=== PATIENT | male | born 1960 | race Caucasian/White ===

== ENCOUNTER 2020-06-20 14:50 | Inpatient (IN) | payer BC, OTHER ==
[~2020-06-20] VITALS: Ht 182.9 cm; Wt 81.8 kg
[2020-06-20] MEDS ORDERED: normal saline 1000ML IV soln IV ONE (15:25)
[2020-06-20] MEDS ORDERED: piperacillin/tazo 3.375gm/50ml 50 ML IV ONE (15:35)
[2020-06-20] MEDS ORDERED: vancomycin/NS 1 GM ADD-VANTAGE 250 ML IV ONE (15:35)
--- NOTE | 2020-06-20 15:46 | NUR ---
PT TAKEN TO MAIN ER, 1ST LITER NS INFUSING
[2020-06-20 16:01] LABS: BASOPHILS # (AUTO) 0.1 X10'3 (0-0.2); BASOPHILS % (AUTO) 0.8 % (0-1); EOSINOPHILS # (AUTO) 0.2 X10'3 (0-0.9); EOSINOPHILS % (AUTO) 1.3 % (0-6); HEMATOCRIT 39.5 % (42.0-52.0); HEMOGLOBIN 13.1 g/dl (14.0-17.9); LYMPHOCYTES # (AUTO) 1.5 X10'3 (1.1-4.8); LYMPHOCYTES % (AUTO) 8.6 % (21-51); MEAN CORPUSCULAR HEMOGLOBIN 29.9 PG (27.0-31.0); MEAN CORPUSCULAR HGB CONC 33.2 g/dL (33.0-36.5); MEAN CORPUSCULAR VOLUME 90.2 FL (78-98); MEAN PLATELET VOLUME 7.4 FL (7.4-10.4); MONOCYTES # (AUTO) 1.7 X10'3 (0-0.9); MONOCYTES % (AUTO) 9.7 % (2-12); NEUTROPHILS # (AUTO) 13.9 X10'3 (1.8-7.7); NEUTROPHILS % (AUTO) 79.6 % (42-75); PLATELET COUNT 447 X10'3 (140-440); RED BLOOD COUNT 4.38 X10'6 (4.70-6.10); RED CELL DISTRIBUTION WIDTH 14.2 % (11.5-14.5); WHITE BLOOD COUNT 17.5 X10'3 (4.5-11.0)
[2020-06-20 16:11] LABS: ALANINE AMINOTRANSFERASE 31 U/L (12-78); ALBUMIN 3.5 G/DL (3.4-5.0); ALBUMIN/GLOBULIN RATIO 0.8 (1.1-1.5); ALKALINE PHOSPHATASE 90 IU/L (46-116); ANION GAP 10 (8-16); ASPARTATE AMINO TRANSFERASE 21 U/L (10-37); BILIRUBIN,TOTAL 0.5 MG/DL (0.1-1.0); BLOOD UREA NITROGEN 12 MG/DL (7-18); BUN/CREATININE RATIO 11.5 (5.4-32.0); CHLORIDE 104 MMOL/L (99-107); CREATININE 1.04 MG/DL (0.60-1.10); GLUCOSE 98 MG/DL (70-104); SODIUM 138 MMOL/L (135-145); TOTAL CARBON DIOXIDE 23.9 MMOL/L (24-32); TOTAL PROTEIN 7.9 G/DL (6.4-8.2); eGFR 73 ML/MIN
[2020-06-20] MEDS ORDERED: iohexol 300mg/ml 100ml inj. ONE (16:17)
[2020-06-20] MEDS ORDERED: magnesium 2GM in 50ml NS 50 ML IV PRN (17:35)
[2020-06-20] MEDS ORDERED: potassium Cl 20 mEq SR tablet PO PRN ×2 (17:35)
[2020-06-20] MEDS ORDERED: magnesium 4gm in 100ml NS 100 ML IV PRN (17:35)
[2020-06-20] MEDS ORDERED: magnesium Cl slow-release 64mg tablet PO PRN (17:35)
[2020-06-20] MEDS ORDERED: potassium CL 10mEq/100ml bag 100 ML IV PRN ×2 (17:35)
[2020-06-20] MEDS ORDERED: AMLO2.5T2 PO (18:04)
[2020-06-20] MEDS: normal saline 1000ml 1,000 ML IV SCH (18:18)
[2020-06-20 19:20] VITALS: BP 150/81
[2020-06-20] MEDS: HYDROcodone/acetaminophen 5mg/325mg tablet PO PRN ×2 (19:55→23:37)
[2020-06-20] MEDS ORDERED: vancomycin/NS 1 GM ADD-VANTAGE 250 ML IV SCH (20:00)
[2020-06-20] MEDS: K and/or MAG REPLACEMENT MC SCH (20:00)
[2020-06-20] MEDS: docusate sod 100mg capsule PO SCH (20:00)
[2020-06-20 22:00] VITALS: BP 155/85
[2020-06-20] MEDS: morphine 2 MG/ML inj. syringe IV PRN (22:44)
[2020-06-21] MEDS: HYDROcodone/acetaminophen 5mg/325mg tablet PO PRN ×3 (03:42→21:19)
[2020-06-21] MEDS: morphine 2 MG/ML inj. syringe IV PRN ×2 (04:39→11:36)
[2020-06-21] MEDS ORDERED: VANCOmycin 1250MG/NS 250ml Bag 250 ML IV SCH (05:00)
[2020-06-21 06:00] VITALS: BP 141/84
[2020-06-21 06:54] LABS: BASOPHILS # (AUTO) 0.1 X10'3 (0-0.2); BASOPHILS % (AUTO) 0.7 % (0-1); EOSINOPHILS # (AUTO) 0.5 X10'3 (0-0.9); EOSINOPHILS % (AUTO) 2.9 % (0-6); HEMATOCRIT 38.9 % (42.0-52.0); HEMOGLOBIN 12.8 g/dl (14.0-17.9); LYMPHOCYTES # (AUTO) 1.8 X10'3 (1.1-4.8); LYMPHOCYTES % (AUTO) 11.3 % (21-51); MEAN CORPUSCULAR HEMOGLOBIN 29.7 PG (27.0-31.0); MEAN CORPUSCULAR VOLUME 89.9 FL (78-98); MEAN PLATELET VOLUME 7.3 FL (7.4-10.4); MONOCYTES # (AUTO) 1.9 X10'3 (0-0.9); MONOCYTES % (AUTO) 11.8 % (2-12); NEUTROPHILS # (AUTO) 11.6 X10'3 (1.8-7.7); NEUTROPHILS % (AUTO) 73.3 % (42-75); PLATELET COUNT 417 X10'3 (140-440); RED BLOOD COUNT 4.32 X10'6 (4.70-6.10); RED CELL DISTRIBUTION WIDTH 14.2 % (11.5-14.5); WHITE BLOOD COUNT 15.8 X10'3 (4.5-11.0)
[2020-06-21 06:56] LABS: ALBUMIN 2.9 G/DL (3.4-5.0); ANION GAP 5 (8-16); BLOOD UREA NITROGEN 9 MG/DL (7-18); BUN/CREATININE RATIO 10.5 (5.4-32.0); CALCIUM 8.4 MG/DL (8.5-10.1); CHLORIDE 102 MMOL/L (99-107); CREATININE 0.86 MG/DL (0.60-1.10); GLUCOSE 104 MG/DL (70-104); MAGNESIUM 1.9 MG/DL (1.5-2.4); POTASSIUM 3.9 MMOL/L (3.5-5.1); SODIUM 136 MMOL/L (135-145); TOTAL CARBON DIOXIDE 28.8 MMOL/L (24-32); eGFR > 90 ML/MIN
--- NOTE | 2020-06-21 07:04 | NUR ---
Patient in room ORTHO 4013. I have received report from Patti RN and had the opportunity to ask questions and assume patient care.
[2020-06-21] MEDS: K and/or MAG REPLACEMENT MC SCH ×2 (08:00→20:00)
[2020-06-21] MEDS: docusate sod 100mg capsule PO SCH ×2 (09:41→21:15)
[2020-06-21 10:00] VITALS: BP 124/66
[2020-06-21] MEDS: VANCOmycin 1250MG/NS 250ml Bag 250 ML IV SCH ×2 (13:56→21:20)
[2020-06-21 18:00] VITALS: BP 133/78
--- NOTE | 2020-06-21 18:22 | NUR ---
Problems reprioritized. Patient report given, questions answered & plan of care reviewed with Monty Church.
--- NOTE | 2020-06-21 18:57 | NUR ---
Patient in room ORTHO 4013. I have received report from Pamela KAUR and had the opportunity to ask questions and assume patient care.
[2020-06-21] MEDS: lactobacillus rhamnosus 10,000 MMU CELLS/CAPSULE PO SCH (21:15)
[2020-06-21 22:00] VITALS: BP 155/82
[2020-06-22] VITALS (18 sets, daily range): BP systolic 113–156; BP diastolic 67–95
[2020-06-22] MEDS: VANCOmycin 1250MG/NS 250ml Bag 250 ML IV SCH ×3 (04:40→21:29)
[2020-06-22] MEDS: HYDROcodone/acetaminophen 5mg/325mg tablet PO PRN ×2 (04:42→11:14)
[2020-06-22 06:09] LABS: ALBUMIN 2.7 G/DL (3.4-5.0); ANION GAP 7 (8-16); BLOOD UREA NITROGEN 12 MG/DL (7-18); BUN/CREATININE RATIO 13.5 (5.4-32.0); CALCIUM 8.9 MG/DL (8.5-10.1); CHLORIDE 103 MMOL/L (99-107); CREATININE 0.89 MG/DL (0.60-1.10); GLUCOSE 99 MG/DL (70-104); POTASSIUM 3.7 MMOL/L (3.5-5.1); SODIUM 139 MMOL/L (135-145); TOTAL CARBON DIOXIDE 29.3 MMOL/L (24-32); VANCOMYCIN,TROUGH 15.8 UG/ML (6.0-14.0); eGFR 87 ML/MIN
[2020-06-22 06:15] LABS: BASOPHILS # (AUTO) 0.1 X10'3 (0-0.2); BASOPHILS % (AUTO) 0.8 % (0-1); EOSINOPHILS # (AUTO) 0.4 X10'3 (0-0.9); EOSINOPHILS % (AUTO) 2.9 % (0-6); HEMATOCRIT 40.2 % (42.0-52.0); HEMOGLOBIN 13.1 g/dl (14.0-17.9); LYMPHOCYTES # (AUTO) 1.8 X10'3 (1.1-4.8); LYMPHOCYTES % (AUTO) 12.2 % (21-51); MEAN CORPUSCULAR HEMOGLOBIN 29.7 PG (27.0-31.0); MEAN CORPUSCULAR HGB CONC 32.6 g/dL (33.0-36.5); MEAN PLATELET VOLUME 7.3 FL (7.4-10.4); MONOCYTES # (AUTO) 1.8 X10'3 (0-0.9); MONOCYTES % (AUTO) 11.8 % (2-12); NEUTROPHILS # (AUTO) 10.9 X10'3 (1.8-7.7); NEUTROPHILS % (AUTO) 72.3 % (42-75); PLATELET COUNT 448 X10'3 (140-440); RED BLOOD COUNT 4.42 X10'6 (4.70-6.10)
--- NOTE | 2020-06-22 06:31 | NUR ---
Problems reprioritized. Patient report given, questions answered & plan of care reviewed with Zulema KAUR.
[2020-06-22] MEDS: K and/or MAG REPLACEMENT MC SCH ×2 (07:37→20:00)
[2020-06-22] MEDS: lactobacillus rhamnosus 10,000 MMU CELLS/CAPSULE PO SCH ×2 (07:37→21:01)
[2020-06-22] MEDS: docusate sod 100mg capsule PO SCH ×2 (07:37→20:00)
[2020-06-22 09:25] LABS: TOTAL CELLS COUNTED 100
[2020-06-22 09:26] LABS: ANISOCYTOSIS FEW; PLATELET ESTIMATE INCREASED; TOXIC GRANULATION 1+
[2020-06-22 11:49] LABS: PARTIAL THROMBOPLASTIN TIME 32 SECONDS (22-32)
[2020-06-22] MEDS ORDERED: ringers solution, lacted 1,000 ML IV SCH (14:39)
[2020-06-22] MEDS ORDERED: ondansetron/PF 4mg/2ml inj IV PRN (14:40)
[2020-06-22] MEDS ORDERED: hydrALAZINE 20mg/ml inj. IV PRN (14:40)
[2020-06-22] MEDS ORDERED: fentaNYL/PF 50MCG/1 ML 2ML syringe IV PRN (14:40)
[2020-06-22] MEDS ORDERED: labetalol 20mg/4ml (5mg/ml) syringe IV PRN (14:40)
[2020-06-22] MEDS ORDERED: morphine 4 MG/ML inj SYRINge IV PRN (14:40)
[2020-06-22] MEDS ORDERED: morphine 2 MG/ML inj. syringe IV PRN (14:40)
[2020-06-22] MEDS ORDERED: fentaNYL/PF 50MCG/1 ML 2ML syringe ONE (15:43)
[2020-06-22] MEDS ORDERED: midazolam 2 mg/2 ml injection ONE (15:44)
[2020-06-22] MEDS ORDERED: sevoflurane 250ml liquid IH ONE (15:45)
[2020-06-22] MEDS ORDERED: ondansetron/PF 4mg/2ml inj ONE (15:54)
[2020-06-22] MEDS ORDERED: LIDOcaine 2% (20mg/ml) 5ml vial ONE (15:54)
[2020-06-22] MEDS ORDERED: propofol inj 20 ML IV ONE (15:55)
[2020-06-22] MEDS ORDERED: dexamethasone sod phosphate 4mg/ml inj. ONE (15:56)
[2020-06-22] MEDS ORDERED: naloxone 0.4 mg/ml inj ONE (16:18)
--- NOTE | 2020-06-22 16:26 | NUR ---
Received from OR via ORTHO BED WITH MILLA , accompanied by Anesthesiologist SHERMAN and report given by AnesthEsiolgist. PATIENT WITH 20G PIV IN LEFT UR RUNNING LR AT `100. PAINFUL AND MEDICATED UPON ARRIVAL. VSS. RIGHT FOOT WRAPPED IN FELICITY WRAP NO DRAINS PRESENT BUT WITH BLOOD ON GAUZE WITHIN FELICITY BANDAGE. GATCHED FOOT OF BED. 10L MASK ON WITH 100% SATURATIONS. Addendum: 06/22/20 at 1638 by Salvador Gayle RN, RN Amended: Links added.
[2020-06-22] MEDS ORDERED: VANCOMYCIN LEVEL IV ONE (16:30)
[2020-06-22] MEDS: fentaNYL/PF 50MCG/1 ML 2ML syringe IV PRN ×2 (16:39→17:01)
--- NOTE | 2020-06-22 17:26 | NUR ---
TRANSFER: ALL CRITERIA FOR TRANSFER TO THE FLOOR HAS BEEN ACHIEVED. REPORT GIVEN AND ALL QUESTIONS ANSWERED, VSS. BED LOW 2 RAILS UP, CALL LIGHT PRESENT AND PATIENT HOOKED UP TO ALL LINES AND VSS. PATIENTS RN PRESENT TO ACCEPT CARE. SPOKE WITH RN - CARE ASSUMED. PAIN OF 2-10. IT RECRUITER PRESENT TO SET UP VS. Addendum: 06/22/20 at 1736 by Salvador Ellis - NATASHA RN Amended: Links added.
--- NOTE | 2020-06-22 17:31 | NUR ---
Spoke with pharmacy about critical vanco- false positive per pharmacy
--- NOTE | 2020-06-22 17:40 | NUR ---
MD Obrien aware of false positive
--- NOTE | 2020-06-22 17:56 | NUR ---
Vanco trough was taken after 1330 dose. There was a vanco trough done at 0430 15.8
[2020-06-22] MEDS: amLODIPine 2.5mg tablet PO SCH (18:05)
--- NOTE | 2020-06-22 18:16 | NUR ---
Problems reprioritized. Patient report given, questions answered & plan of care reviewed with Eliza KAUR.
[2020-06-22] MEDS: normal saline 1000ml 1,000 ML IV SCH (21:04)
[2020-06-23] VITALS (7 sets, daily range): BP systolic 131–166; BP diastolic 54–90
[2020-06-23] MEDS: VANCOmycin 1250MG/NS 250ml Bag 250 ML IV SCH ×3 (05:48→21:19)
[2020-06-23 07:33] LABS: BASOPHILS # (AUTO) 0.1 X10'3 (0-0.2); BASOPHILS % (AUTO) 0.7 % (0-1); EOSINOPHILS % (AUTO) 0 % (0-6); HEMATOCRIT 40.2 % (42.0-52.0); HEMOGLOBIN 13.3 g/dl (14.0-17.9); LYMPHOCYTES # (AUTO) 1.3 X10'3 (1.1-4.8); LYMPHOCYTES % (AUTO) 7.3 % (21-51); MEAN CORPUSCULAR HEMOGLOBIN 29.9 PG (27.0-31.0); MEAN CORPUSCULAR HGB CONC 33.1 g/dL (33.0-36.5); MEAN CORPUSCULAR VOLUME 90.4 FL (78-98); MEAN PLATELET VOLUME 7.2 FL (7.4-10.4); MONOCYTES % (AUTO) 5.8 % (2-12); NEUTROPHILS # (AUTO) 14.9 X10'3 (1.8-7.7); NEUTROPHILS % (AUTO) 86.2 % (42-75); PLATELET COUNT 526 X10'3 (140-440); RED BLOOD COUNT 4.45 X10'6 (4.70-6.10); WHITE BLOOD COUNT 17.2 X10'3 (4.5-11.0)
[2020-06-23 07:53] LABS: ALBUMIN 2.6 G/DL (3.4-5.0); ANION GAP 7 (8-16); BLOOD UREA NITROGEN 16 MG/DL (7-18); CALCIUM 8.8 MG/DL (8.5-10.1); CHLORIDE 104 MMOL/L (99-107); GLUCOSE 125 MG/DL (70-104); MAGNESIUM 1.9 MG/DL (1.5-2.4); POTASSIUM 3.8 MMOL/L (3.5-5.1); SODIUM 139 MMOL/L (135-145); TOTAL CARBON DIOXIDE 27.9 MMOL/L (24-32); eGFR > 90 ML/MIN
[2020-06-23] MEDS: K and/or MAG REPLACEMENT MC SCH ×2 (08:00→19:25)
[2020-06-23] MEDS: docusate sod 100mg capsule PO SCH ×2 (08:00→19:25)
[2020-06-23 08:50] LABS: TOTAL CELLS COUNTED 100
[2020-06-23 08:51] LABS: PLATELET ESTIMATE INCREASED
[2020-06-23] MEDS: lactobacillus rhamnosus 10,000 MMU CELLS/CAPSULE PO SCH ×2 (08:52→19:24)
[2020-06-23] MEDS: amLODIPine 2.5mg tablet PO SCH (08:52)
[2020-06-23] MEDS: HYDROcodone/acetaminophen 5mg/325mg tablet PO PRN (09:52)
[2020-06-23] MEDS: normal saline 1000ml 1,000 ML IV SCH (12:31)
--- NOTE | 2020-06-23 15:34 | NUR ---
Page Sent PAGER ID: [phone] MESSAGE: MELISSA 5199-RE: LEONARD KIM [id number]...PT HAD FAMILY MEMBER BRING HIM 2 BEERS, HE DRANK ONE, I TOOK THE OTHER ONE. PT STATES HE DRINKS 4-5 A DAY. CAN WE GET AN ORDER FOR A BEER WITH MEALS?
--- NOTE | 2020-06-23 15:45 | NUR ---
orders from Dr Pablo, no alcohol, enter mild ETOH protocol
[2020-06-23] MEDS ORDERED: LORazepam 2 mg/ml vial IV PRN (15:50)
[2020-06-23] MEDS ORDERED: haloperidol 5mg tablet PO PRN (15:50)
[2020-06-23] MEDS ORDERED: haloperidol lactate 5mg/ml inj IM PRN (15:50)
[2020-06-23] MEDS ORDERED: LORazepam 1 MG tablet PO PRN (15:50)
--- NOTE | 2020-06-23 18:13 | NUR ---
Problems reprioritized. Patient report given, questions answered & plan of care reviewed with NATASHA Uriarte.
--- NOTE | 2020-06-23 18:47 | NUR ---
Patient in room ORTHO 4013. I have received report from Verito KAUR and had the opportunity to ask questions and assume patient care.
[2020-06-24] MEDS: VANCOmycin 1250MG/NS 250ml Bag 250 ML IV SCH (05:16)
[2020-06-24] MEDS: normal saline 1000ml 1,000 ML IV SCH ×2 (05:17→21:47)
[2020-06-24 06:00] VITALS: BP 152/77
--- NOTE | 2020-06-24 06:30 | NUR ---
Problems reprioritized. Patient report given, questions answered & plan of care reviewed with Jannet KAUR.
[2020-06-24 07:04] LABS: BASOPHILS # (AUTO) 0.1 X10'3 (0-0.2); EOSINOPHILS # (AUTO) 0.3 X10'3 (0-0.9); EOSINOPHILS % (AUTO) 2.4 % (0-6); HEMATOCRIT 42.3 % (42.0-52.0); HEMOGLOBIN 13.8 g/dl (14.0-17.9); LYMPHOCYTES # (AUTO) 2.7 X10'3 (1.1-4.8); LYMPHOCYTES % (AUTO) 18.8 % (21-51); MEAN CORPUSCULAR HEMOGLOBIN 29.7 PG (27.0-31.0); MEAN CORPUSCULAR HGB CONC 32.7 g/dL (33.0-36.5); MEAN PLATELET VOLUME 7.1 FL (7.4-10.4); MONOCYTES # (AUTO) 1.5 X10'3 (0-0.9); MONOCYTES % (AUTO) 10.6 % (2-12); NEUTROPHILS # (AUTO) 9.6 X10'3 (1.8-7.7); NEUTROPHILS % (AUTO) 67.2 % (42-75); PLATELET COUNT 521 X10'3 (140-440); RED BLOOD COUNT 4.65 X10'6 (4.70-6.10); RED CELL DISTRIBUTION WIDTH 14.2 % (11.5-14.5); WHITE BLOOD COUNT 14.3 X10'3 (4.5-11.0)
[2020-06-24 07:06] LABS: ALBUMIN 2.7 G/DL (3.4-5.0); AMYLASE 45 U/L (25-115); ANION GAP 6 (8-16); BLOOD UREA NITROGEN 16 MG/DL (7-18); BUN/CREATININE RATIO 18.2 (5.4-32.0); CALCIUM 8.7 MG/DL (8.5-10.1); CHLORIDE 105 MMOL/L (99-107); CREATININE 0.88 MG/DL (0.60-1.10); GLUCOSE 100 MG/DL (70-104); LIPASE 98 U/L (73-393); MAGNESIUM 1.9 MG/DL (1.5-2.4); PHOSPHORUS 3.3 MG/DL (2.3-4.5); POTASSIUM 3.9 MMOL/L (3.5-5.1); SODIUM 140 MMOL/L (135-145); TOTAL CARBON DIOXIDE 28.6 MMOL/L (24-32); eGFR 88 ML/MIN
[2020-06-24] MEDS: lactobacillus rhamnosus 10,000 MMU CELLS/CAPSULE PO SCH ×2 (07:14→19:16)
[2020-06-24] MEDS: multivitamins, therapeutics tablet PO SCH (07:14)
[2020-06-24] MEDS: thiamine 100mg tablet PO SCH (07:14)
[2020-06-24] MEDS: amLODIPine 2.5mg tablet PO SCH (07:14)
[2020-06-24] MEDS: folic acid 1mg tablet PO SCH (07:15)
[2020-06-24] MEDS: docusate sod 100mg capsule PO SCH ×2 (07:15→19:20)
[2020-06-24] MEDS: K and/or MAG REPLACEMENT MC SCH ×2 (07:19→19:20)
[2020-06-24 09:05] LABS: TOTAL CELLS COUNTED 100
[2020-06-24 09:10] LABS: PLATELET ESTIMATE INCREASED
--- NOTE | 2020-06-24 09:48 | NUR ---
Patient refused 1000 vitals Addendum: 06/24/20 at 0949 by Jannet Thomas RN Amended: Links added.
--- NOTE | 2020-06-24 10:56 | NUR ---
PAGER ID: [phone] MESSAGE: [phone] Zach Mcwilliams- patient insurance is refusing his stay, patient wants to leave now. Please call elise [phone]
[2020-06-24] MEDS: ceFAZolin/D5W- 1GM premix 50 ML IV SCH ×3 (11:21→23:55)
--- NOTE | 2020-06-24 14:00 | NUR ---
Patient refused blood sugar check at 1400
--- NOTE | 2020-06-24 14:57 | NUR ---
WOUND INFECTION EDUCATION PROVIDED BY WOUND CARE 1. Patient instructed to call their primary doctor, or go the ED immediately if any of the following symptoms occur: * Increased pain in wound * Increase in drainage from the wound * Redness in the skin surrounding the wound * Warmth in the skin surrounding the wound * Bleeding from the wound * Temperature of 101 or greater 2. If any of these occur while in the hospital tell a nurse immediately. Addendum: 06/24/20 at 1457 by Ivet Quintanilla RN Amended: Links added.
--- NOTE | 2020-06-24 17:44 | NUR ---
Patient continues to refuse blood sugar checks.
[2020-06-24 18:00] VITALS: BP 145/78
--- NOTE | 2020-06-24 18:16 | NUR ---
Problems reprioritized. Patient report given, questions answered & plan of care reviewed with Kalani KAUR.
--- NOTE | 2020-06-24 18:39 | NUR ---
Patient in room ORTH[facility] 4013. I have received report from Jannet KAUR and had the opportunity to ask questions and assume patient care.
--- NOTE | 2020-06-24 19:24 | NUR ---
Patient refusing 1999 blood sugar check. Addendum: 06/24/20 at 1925 by Kalani Kumar RN Amended: Links added.
--- NOTE | 2020-06-24 21:48 | NUR ---
Patient pulled seizure pads off bed and refusing to have them reapplied.
[2020-06-24 22:00] VITALS: BP 155/83
--- NOTE | 2020-06-25 02:00 | NUR ---
Patient refused blood sugar assessment.
[2020-06-25 06:00] VITALS: BP 145/90
[2020-06-25 06:11] LABS: ALBUMIN 2.8 G/DL (3.4-5.0); AMYLASE 42 U/L (25-115); ANION GAP 6 (8-16); BLOOD UREA NITROGEN 15 MG/DL (7-18); BUN/CREATININE RATIO 18.3 (5.4-32.0); CALCIUM 8.7 MG/DL (8.5-10.1); CHLORIDE 104 MMOL/L (99-107); CREATININE 0.82 MG/DL (0.60-1.10); GLUCOSE 106 MG/DL (70-104); LIPASE 88 U/L (73-393); PHOSPHORUS 3.7 MG/DL (2.3-4.5); POTASSIUM 3.9 MMOL/L (3.5-5.1); SODIUM 139 MMOL/L (135-145); TOTAL CARBON DIOXIDE 28.8 MMOL/L (24-32); eGFR > 90 ML/MIN
--- NOTE | 2020-06-25 06:30 | NUR ---
Problems reprioritized. Patient report given, questions answered & plan of care reviewed with Diane KAUR.
--- NOTE | 2020-06-25 06:55 | NUR ---
Patient in room ORTHO 4013B. I have received report from NATASHA BEAR and had the opportunity to ask questions and assume patient care.
[2020-06-25] MEDS: K and/or MAG REPLACEMENT MC SCH ×2 (08:00→19:30)
[2020-06-25] MEDS: docusate sod 100mg capsule PO SCH ×2 (08:00→19:29)
[2020-06-25 08:06] LABS: BASOPHILS # (AUTO) 0.1 X10'3 (0-0.2); BASOPHILS % (AUTO) 1.1 % (0-1); EOSINOPHILS # (AUTO) 0.3 X10'3 (0-0.9); EOSINOPHILS % (AUTO) 2.3 % (0-6); HEMATOCRIT 43.9 % (42.0-52.0); HEMOGLOBIN 14.3 g/dl (14.0-17.9); LYMPHOCYTES # (AUTO) 2.2 X10'3 (1.1-4.8); MEAN CORPUSCULAR HEMOGLOBIN 29.3 PG (27.0-31.0); MEAN CORPUSCULAR HGB CONC 32.7 g/dL (33.0-36.5); MEAN CORPUSCULAR VOLUME 89.6 FL (78-98); MEAN PLATELET VOLUME 6.8 FL (7.4-10.4); MONOCYTES # (AUTO) 1.3 X10'3 (0-0.9); MONOCYTES % (AUTO) 11.4 % (2-12); NEUTROPHILS # (AUTO) 7.6 X10'3 (1.8-7.7); NEUTROPHILS % (AUTO) 66.2 % (42-75); PLATELET COUNT 593 X10'3 (140-440); RED CELL DISTRIBUTION WIDTH 13.9 % (11.5-14.5); WHITE BLOOD COUNT 11.4 X10'3 (4.5-11.0)
[2020-06-25 08:46] LABS: PLATELET ESTIMATE INCREASED; TOTAL CELLS COUNTED 100
[2020-06-25 10:00] VITALS: BP 147/89
[2020-06-25] MEDS: folic acid 1mg tablet PO SCH (10:05)
[2020-06-25] MEDS: lactobacillus rhamnosus 10,000 MMU CELLS/CAPSULE PO SCH ×2 (10:05→19:29)
[2020-06-25] MEDS: amLODIPine 2.5mg tablet PO SCH (10:05)
[2020-06-25] MEDS: multivitamins, therapeutics tablet PO SCH (10:05)
[2020-06-25] MEDS: thiamine 100mg tablet PO SCH (10:05)
[2020-06-25] MEDS: ceFAZolin/D5W- 1GM premix 50 ML IV SCH ×3 (10:06→23:53)
--- NOTE | 2020-06-25 10:41 | NUR ---
Initial: Pt admit with right foot cellulitis with abscess. Pt s/p I&D 06/22. Pt on a regular diet documented with average 75-100% PO intake throughout LOS meeting nutrient needs. LBM 06/23, receiving routine bowel care. Pt receiving routine Thiamine, Folic acid, and MVI for EtOH hx. No nutrition intervention warranted at this time. Will continue to follow. Recommendations: 1) Continue regular diet 2) Continue routine Thiamine, Folic acid, and MVI for EtOH hx 3) Routine bowel care 4) Scaled weights per rx Addendum: 06/25/20 at [address] Amended: Links added.
[2020-06-25] MEDS: HYDROcodone/acetaminophen 5mg/325mg tablet PO PRN (11:24)
[2020-06-25] MEDS: normal saline 1000ml 1,000 ML IV SCH (13:11)
--- NOTE | 2020-06-25 16:05 | NUR ---
PATIENT REFUSED BLOOD SUGAR CHECKS AND HAS HAD NO SYMPTOMS OF LOW BLOOD SUGAR Addendum: 06/25/20 at 1607 by Diane Gonzalez RN Amended: Links added.
[2020-06-25 18:00] VITALS: BP 138/84
--- NOTE | 2020-06-25 18:16 | NUR ---
Patient in room ORTH[facility] 4013. I have received report from Diane KAUR and had the opportunity to ask questions and assume patient care.
--- NOTE | 2020-06-25 18:27 | NUR ---
Problems reprioritized. Patient report given, questions answered & plan of care reviewed with NATASHA BEAR.
--- NOTE | 2020-06-25 20:45 | NUR ---
Patient refused blood sugar assessment, educated on importance of test but patient still declined. Addendum: 06/25/20 at 6 by Kalani Kumar RN Amended: Links added.
[2020-06-25 22:00] VITALS: BP 137/75
[2020-06-26] MEDS: normal saline 1000ml 1,000 ML IV SCH (05:00)
[2020-06-26 06:00] VITALS: BP 146/92
--- NOTE | 2020-06-26 06:10 | NUR ---
received report from hina abrams
--- NOTE | 2020-06-26 06:17 | NUR ---
Problems reprioritized. Patient report given, questions answered & plan of care reviewed with Francie KAUR.
[2020-06-26 06:50] LABS: PHOSPHORUS 2.9 MG/DL (2.3-4.5)
[2020-06-26] MEDS: K and/or MAG REPLACEMENT MC SCH (07:48)
[2020-06-26] MEDS: ceFAZolin/D5W- 1GM premix 50 ML IV SCH (07:57)
[2020-06-26] MEDS: docusate sod 100mg capsule PO SCH (07:57)
[2020-06-26] MEDS: folic acid 1mg tablet PO SCH (07:58)
[2020-06-26] MEDS: lactobacillus rhamnosus 10,000 MMU CELLS/CAPSULE PO SCH (07:58)
[2020-06-26 08:00] VITALS: BP_SYST 135
[2020-06-26] MEDS: amLODIPine 2.5mg tablet PO SCH (08:00)
--- NOTE | 2020-06-26 08:00 | NUR ---
pt denies that he is diabetic and refuses to have his bg tested, continue to educate
[2020-06-26] MEDS: thiamine 100mg tablet PO SCH (08:01)
[2020-06-26] MEDS: multivitamins, therapeutics tablet PO SCH (08:01)
--- NOTE | 2020-06-26 09:00 | NUR ---
pt talking about going ama, nursing staff advised pt not to go ama and to wait and see what the doc has to say about his foot infection also pt is advised to stay to get antibiotics for home use if pt gets d/c so his infection does not get worse and that if he leaves before the doc d/c him he will not get his antibiotics continue to educate
--- NOTE | 2020-06-26 09:58 | NUR ---
notified md prior to ama, pt signed ama paperwork and is leaving, now, pt refused all woc care and d/c photos
--- NOTE | 2020-06-26 11:09 | NUR ---
Student documentation: I have reviewed all interventions, assessments performed and documented by Ariel Estrada
== END 2020-06-26 10:00 | disposition left against medical advice (07) | DRG 603 ==
LOC: ER 14:52 → ED HOLD 17:33 → ORTHO 4S 19:15
PROVIDERS: ADMIT Internal Medicine; ATTEND Internal Medicine
PROC: 0H9MXZZ Drainage of Right Foot Skin, External Approach (ICD-10-PCS; principal; 2020-06-22 15:50)
DX: L03.115 Cellulitis of right lower limb (principal); L02.611 Cutaneous abscess of right foot; B95.61 Methicillin susceptible Staphylococcus aureus infection as the cause of diseases classified elsewhere; F15.90 Other stimulant use, unspecified, uncomplicated; F17.210 Nicotine dependence, cigarettes, uncomplicated; I10 Essential (primary) hypertension; Z82.3 Family history of stroke; Y93.89 Activity, other specified; Y92.89 Other specified places as the place of occurrence of the external cause; Y99.8 Other external cause status; W26.8XXA Contact with other sharp object(s), not elsewhere classified, initial encounter; F10.10 Alcohol abuse, uncomplicated
CPT/HCPCS: 96365; 99285; Z7506; 36415; 73630; 73701; 80048; 80053; 80202; 82150; 82948; 83605; 83690; 83735; 84100; 84145; 85007; 85025; 85610; 85730; 87040; 87070; 87075; 87077; 87081; 87102; 87186; A4618; A6266; A6446; A6449; A7000; G0378; J0690; J1100; J2001; J2250; J2270; J2310; J2405; J2543; J2704; J3010; J3370; J7030; J7120; Q9967

== ENCOUNTER 2020-06-26 13:11 | Emergency (ER) | payer OTHER ==
[~2020-06-26 13:11] MED LIST: AMLO2.5T2 PO
== END 2020-06-26 13:51 | disposition left against medical advice (07) ==
LOC: ER 13:12
DX: Z76.0 Encounter for issue of repeat prescription (principal); Z53.21 Procedure and treatment not carried out due to patient leaving prior to being seen by health care provider